=== PATIENT | female | born 1970 | race Caucasian/White ===

== ENCOUNTER → 2017-06-29 | Emergency (ER) | payer MEDICAID, OTHER ==
[~2017-06-29] VITALS: Ht 157.5 cm; Wt 48.0 kg
[~2017-06-29] MED LIST: CLIN-79 PO; LIDO20SO16 PO
[2017-06-29 09:51] VITALS: BP 110/77
== END | disposition home or self-care (01) ==
LOC: ER 09:31
DX: K05.10 Chronic gingivitis, plaque induced (principal); K04.7 Periapical abscess without sinus; Z88.1 Allergy status to other antibiotic agents
CPT/HCPCS: 99283

== ENCOUNTER 2017-11-08 11:33 | Emergency (ER) | payer MEDICAID, OTHER ==
[~2017-11-08] VITALS: Ht 154.9 cm; Wt 47.0 kg
[~2017-11-08 11:33] MED LIST changes: -CLIN-79 PO; +CLIN150C8 PO
[2017-11-08 11:39] VITALS: BP 114/74
[2017-11-08] MEDS ORDERED: CLIN300C85 PO (11:54)
== END 2017-11-08 12:11 | disposition home or self-care (01) ==
LOC: ER 11:34
DX: L03.115 Cellulitis of right lower limb (principal); F17.200 Nicotine dependence, unspecified, uncomplicated; Z88.1 Allergy status to other antibiotic agents
CPT/HCPCS: 99283

== ENCOUNTER 2018-09-21 16:02 | Emergency (ER) | payer OTHER ==
[~2018-09-21] VITALS: Ht 154.9 cm; Wt 43.0 kg
[~2018-09-21 16:02] MED LIST changes: +CLIN-96 PO
[2018-09-21 16:13] VITALS: BP 132/67
[2018-09-21] MEDS ORDERED: AMOX-580 PO (16:49)
[2018-09-21] MEDS ORDERED: CLIN150C2 PO (16:58)
== END 2018-09-21 17:08 | disposition home or self-care (01) ==
LOC: ER 16:02
DX: K08.89 Other specified disorders of teeth and supporting structures (principal); Z88.1 Allergy status to other antibiotic agents; Z79.899 Other long term (current) drug therapy
CPT/HCPCS: 99283

== ENCOUNTER 2019-07-13 13:28 | Emergency (ER) | payer MEDICAID ==
[~2019-07-13] VITALS: Ht 160 cm; Wt 47.0 kg
[~2019-07-13 13:28] MED LIST changes: +CLIN-90 PO; -CLIN-96 PO
[2019-07-13] MEDS ORDERED: normal saline 1000ML IV soln IVB ONE (16:00)
[2019-07-13 16:16] LABS: BASOPHILS # (AUTO) 0.1 X10'3 (0-0.2); BASOPHILS % (AUTO) 1.3 % (0-1); EOSINOPHILS # (AUTO) 0.1 X10'3 (0-0.9); EOSINOPHILS % (AUTO) 0.9 % (0-6); HEMATOCRIT 41.9 % (35.0-45.0); HEMOGLOBIN 14.7 g/dl (12.0-16.0); LYMPHOCYTES # (AUTO) 2.2 X10'3 (1.1-4.8); LYMPHOCYTES % (AUTO) 23.3 % (21-51); MEAN CORPUSCULAR HEMOGLOBIN 32.7 PG (27.0-31.0); MEAN CORPUSCULAR HGB CONC 35.1 g/dL (33.0-36.5); MEAN CORPUSCULAR VOLUME 93.2 FL (78-98); MEAN PLATELET VOLUME 7.1 FL (7.4-10.4); MONOCYTES # (AUTO) 0.8 X10'3 (0-0.9); MONOCYTES % (AUTO) 8.8 % (2-12); NEUTROPHILS # (AUTO) 6.1 X10'3 (1.8-7.7); NEUTROPHILS % (AUTO) 65.7 % (42-75); PLATELET COUNT 321 X10'3 (140-440); WHITE BLOOD COUNT 9.3 X10'3 (4.5-11.0)
[2019-07-13 16:34] LABS: ALANINE AMINOTRANSFERASE 15 U/L (12-78); ALBUMIN 3.6 G/DL (3.4-5.0); ALBUMIN/GLOBULIN RATIO 0.9 (1.1-1.5); ALKALINE PHOSPHATASE 77 IU/L (46-116); ANION GAP 3 (8-16); ASPARTATE AMINO TRANSFERASE 19 U/L (10-37); BILIRUBIN,TOTAL 0.3 MG/DL (0.1-1.0); BLOOD UREA NITROGEN 13 MG/DL (7-18); BUN/CREATININE RATIO 19.7 (6.6-38.0); CALCIUM 9.3 MG/DL (8.5-10.1); CHLORIDE 101 MMOL/L (99-107); CREATININE 0.66 MG/DL (0.40-0.90); GLUCOSE 87 MG/DL (70-104); POTASSIUM 3.9 MMOL/L (3.5-5.1); SODIUM 135 MMOL/L (135-145); TOTAL CARBON DIOXIDE 30.9 MMOL/L (24-32); TOTAL PROTEIN 7.7 G/DL (6.4-8.2); eGFR > 90 ML/MIN
[2019-07-13 16:36] LABS: TROPONIN I < 0.04 NG/ML (0.0-0.05)
[2019-07-13 16:51] LABS: CLARITY,URINE CLEAR (Clear); COLOR,URINE YELLOW (Yellow); GLUCOSE, URINE NEGATIVE (Neg); KETONES,URINE NEGATIVE (Neg); LEUKOCYTE ESTERASE ,URINE NEGATIVE (Neg); NITRITES, URINE NEGATIVE (Neg); OCCULT BLOOD,URINE MODERATE (Neg); PH,URINE 5.5 (4.8-8.0); PROTEIN,URINE TRACE mg/dl (Neg); UROBILINOGEN,URINE 0.2 E.U/dL (0.2-1.0)
[2019-07-13 16:52] LABS: UA COLLECTION TYPE CLN CATCH MIDSTREAM
[2019-07-13 16:56] LABS: BACTERIA,URINE FEW /HPF (Neg); MUCUS STRANDS MODERATE /LPF (Neg); SQUAMOUS EPITHELIAL CELL,UR FEW /LPF (FEW)
[2019-07-13 16:58] LABS: CELLULAR CAST 0-4 /LPF (NEGATIVE)
[2019-07-13 17:02] LABS: URINE AMPHETAMINE SCREEN NEGATIVE (Neg); URINE BARBITUATE SCREEN NEGATIVE (Neg); URINE BENZODIAZEPINES SCREEN NEGATIVE (Neg); URINE CANNABINOID SCREEN POSITIVE (Neg); URINE COCAINE SCREEN NEGATIVE (Neg); URINE METHADONE SCREEN NEGATIVE (Neg); URINE OPIATE SCREEN NEGATIVE (Neg); URINE PHENCYCLIDINE SCREEN NEGATIVE (Neg)
--- NOTE | 2019-07-13 18:06 | NUR ---
PT WAS GIVEN THE NEWS SHE MAY HAVE A BRAIN TUMOR. PT IS VERY UPSET AND WANTED TO BE DISCONNECTED FROM MONITORS AND PUT HER CLOTHES ON.
--- NOTE | 2019-07-13 19:29 | NUR ---
CALL[facility] REPORT TO [facility]
[2019-07-13 20:47] VITALS: BP 132/66
== END 2019-07-13 20:50 | disposition short-term general hospital (02) ==
LOC: ER 13:28
DX: G93.89 Other specified disorders of brain (principal); R41.0 Disorientation, unspecified; F12.90 Cannabis use, unspecified, uncomplicated; F17.200 Nicotine dependence, unspecified, uncomplicated; Z88.1 Allergy status to other antibiotic agents
CPT/HCPCS: 36415; 70450; 80053; 80305; 81001; 82948; 84484; 85025; 87088; 93005; 99291; J7030